=== PATIENT | male | born 1970 | race Caucasian/White ===

== ENCOUNTER 2016-06-15 20:52 | Inpatient (IN) | payer OTHER ==
[~2016-06-15] VITALS: Ht 187.9 cm; Wt 79.1 kg
[~2016-06-15 20:52] MED LIST: ASPIRIN ADULT L81 M1 PO; BUSPIRONE HCL10 MG PO; IBU-200200 MG PO; LIPITOR80 MG PO; MEDROL DOSEPAK4 MG PO; VIBRAMYCIN100 MG PO
[2016-06-15 21:13] VITALS: BP 155/93
[2016-06-15 21:13] LABS: HEMATOCRIT 40.2 % (42.0-52.0); HEMOGLOBIN 14.3 g/dl (14.0-18.0); MEAN CELL VOLUME 90.7 fl (80.0-94.0); MEAN CORPUSCULAR HGB 32.3 pg (27.0-31.0); MEAN CORPUSCULAR HGB CONC 35.6 g/dl (33.0-37.0); PLATELET COUNT AUTOMATED 272 10*3/uL (130-400); RED BLOOD COUNT 4.43 10*6/uL (4.50-5.90); RED CELL DISTRI WIDTH 13.1 % (0-14.5); WHITE BLOOD COUNT 23.4 10*3/uL (4.8-10.8)
[2016-06-15] MEDS ORDERED: LIPITOR40 MG PO (21:26)
[2016-06-15 21:28] LABS: PROTHROMBIN TIME 10.4 SECONDS (9.0-12.4)
[2016-06-15] MEDS ORDERED: METOPROLOL SUCC50 M1 PO (21:28)
[2016-06-15 21:29] LABS: ALBUMIN 4.3 gm/dl (3.1-4.5); ALKALINE PHOSPHATASE 105 U/L (45-117); BILIRUBIN, DIRECT < 0.1 mg/dL (0.0-0.2); BUN 15 mg/dl (7-24); CARBON DIOXIDE 23 mmol/L (21-32); CHLORIDE 105 mmol/L (98-107); EST GLOM FILT AFRICAN AMERICAN > 60 ml/min; GLUCOSE 105 mg/dL (65-99); MAGNESIUM 1.8 mg/dL (1.5-2.1); POTASSIUM 4.4 mmol/L (3.5-5.1); SGOT/AST 33 IU/L (3-35); SGPT/ALT 25 U/L (12-78); SODIUM 139 mmol/L (136-145); TOTAL PROTEIN 7.9 gm/dL (6.4-8.2)
[2016-06-15] MEDS ORDERED: ROBAXIN-750750 MG PO (21:29)
[2016-06-15] MEDS ORDERED: RANEXA1000 M1 PO (21:30)
[2016-06-15] MEDS ORDERED: QUALITY CHOICE10 M3 PO (21:31)
[2016-06-15 21:34] LABS: TROPONIN I < 0.015 ng/ml (<0.045)
[2016-06-15 21:35] VITALS: BP 139/91
[2016-06-15 21:40] LABS: ATYPICAL LYMPHS 1 % (0-0); LYMPHOCYTE # 2.3 10*3/uL (1.3-4.4); MONOCYTE # 1.2 10*3/uL (0.1-1.0); NEUTROPHIL # 19.9 10*3/uL (2.3-7.9); NEUTROPHILS 85 % (47-73); PLATELET SUFFICIENCY NORMAL (NORMAL); TOTAL CELLS COUNTED 100 #CELLS
[2016-06-15 21:57] VITALS: BP 122/88
[2016-06-15 23:13] VITALS: BP 153/75
[2016-06-16] VITALS (7 sets, daily range): BP systolic 106–125; BP diastolic 66–76
[2016-06-16 02:33] LABS: LA>2 REFLEX 2 HR DRAW NOW
[2016-06-16 06:23] LABS: ALBUMIN 3.2 gm/dl (3.1-4.5); BUN 13 mg/dl (7-24); CARBON DIOXIDE 22 mmol/L (21-32); CHLORIDE 108 mmol/L (98-107); CHOLESTEROL 81 mg/dL (<200); EST GLOM FILT AFRICAN AMERICAN > 60 ml/min; POTASSIUM 4.1 mmol/L (3.5-5.1); SGOT/AST 14 IU/L (3-35); SGPT/ALT 16 U/L (12-78); SODIUM 142 mmol/L (136-145); TRIGLYCERIDES 37 mg/dl (<150); VLDL CHOLESTEROL 7 mg/dL (6-40)
[2016-06-16 06:24] LABS: CPK 115 U/L (39-308)
[2016-06-16 06:28] LABS: CKMB 1.3 ng/ml (0.5-3.6)
[2016-06-16 06:29] LABS: BASO # 0.1 10*3/uL (0.0-0.1); BASO % 0.2 % (0.0-1.0); EOS % 0.1 % (1.0-4.0); HEMATOCRIT 35.1 % (42.0-52.0); IG # 0.2 10*3/uL (0.0-0.1); LYMPH % 8.7 % (27.0-41.0); MEAN CORPUSCULAR HGB 32.3 pg (27.0-31.0); MEAN CORPUSCULAR HGB CONC 33.9 g/dl (33.0-37.0); MEAN PLATELET VOLUME 10.8 fl (9.6-12.3); MONO # 1.5 10*3/uL (0.1-1.0); MONO % 6.5 % (3.0-9.0); NEUT # 18.9 10*3/uL (2.3-7.9); NEUT % 83.7 % (47.0-73.0); PLATELET COUNT AUTOMATED 202 10*3/uL (130-400); RED BLOOD COUNT 3.68 10*6/uL (4.50-5.90); RED CELL DISTRI WIDTH 13.2 % (0-14.5); WHITE BLOOD COUNT 22.6 10*3/uL (4.8-10.8)
[2016-06-16 06:30] LABS: ALKALINE PHOSPHATASE 77 U/L (45-117); BILIRUBIN, TOTAL 0.9 mg/dl (0.2-1.0); GLUCOSE 113 mg/dL (65-99); HDL CHOLESTEROL 38 mg/dl (40-60); LDL CHOLESTEROL 36 mg/dL (9-159); MAGNESIUM 2.1 mg/dL (1.5-2.1); THYROID STIM HORMONE (HS) 0.348 uIU/ml (0.358-4.75); TOTAL PROTEIN 6.1 gm/dL (6.4-8.2)
[2016-06-16 06:33] LABS: HEMOGLOBIN 11.9 g/dl (14.0-18.0); MEAN CELL VOLUME 95.4 fl (80.0-94.0)
[2016-06-16 06:35] LABS: TROPONIN I < 0.015 ng/ml (<0.045)
[2016-06-16 07:20] LABS: HEMOGLOBIN A1c 5.8 % (4.8-5.6)
[2016-06-16 08:13] LABS: VITAMIN D, 25-HYDROXY 38.9 ng/mL (30-100)
[2016-06-16 12:15] LABS: CKMB 1.3 ng/ml (0.5-3.6); CPK 132 U/L (39-308)
[2016-06-16 12:17] LABS: TROPONIN I < 0.015 ng/ml (<0.045)
[2016-06-16 18:50] LABS: CPK 132 U/L (39-308)
[2016-06-16 18:53] LABS: TROPONIN I < 0.015 ng/ml (<0.045)
[2016-06-17] VITALS: BP 125/70
[2016-06-17 08:00] VITALS: BP 127/84
[2016-06-17 08:27] LABS: BASO # 0.1 10*3/uL (0.0-0.1); BASO % 0.6 % (0.0-1.0); EOS # 0.3 10*3/uL (0.0-0.4); EOS % 2.6 % (1.0-4.0); HEMATOCRIT 33.9 % (42.0-52.0); HEMOGLOBIN 11.5 g/dl (14.0-18.0); LYMPH # 1.5 10*3/uL (1.3-4.4); MEAN CELL VOLUME 95.5 fl (80.0-94.0); MEAN CORPUSCULAR HGB 32.4 pg (27.0-31.0); MEAN CORPUSCULAR HGB CONC 33.9 g/dl (33.0-37.0); MEAN PLATELET VOLUME 9.8 fl (9.6-12.3); MONO # 0.6 10*3/uL (0.1-1.0); MONO % 6.3 % (3.0-9.0); NEUT # 7.3 10*3/uL (2.3-7.9); NEUT % 75.2 % (47.0-73.0); PLATELET COUNT AUTOMATED 191 10*3/uL (130-400); RED BLOOD COUNT 3.55 10*6/uL (4.50-5.90); RED CELL DISTRI WIDTH 13.4 % (0-14.5); WHITE BLOOD COUNT 9.7 10*3/uL (4.8-10.8)
[2016-06-17 08:38] LABS: BUN 10 mg/dl (7-24); CARBON DIOXIDE 23 mmol/L (21-32); CHLORIDE 114 mmol/L (98-107); EST GLOM FILT AFRICAN AMERICAN > 60 ml/min; GLUCOSE 96 mg/dL (65-99); SODIUM 144 mmol/L (136-145)
[2016-06-17] MEDS ORDERED: PREDNISONE10 MG PO (09:43)
[2016-06-17] MEDS ORDERED: PROVENTIL0.09 MG/A1 INH (09:43)
[2016-06-17] MEDS ORDERED: PANTOPRAZOLE SO40 MG PO (09:43)
[2016-06-17] MEDS ORDERED: LEVAQUIN750 M1 PO (09:43)
[2016-06-17] MEDS ORDERED: DUONEB 3 MG/3 ML3 M1 NEB (09:43)
== END 2016-06-17 11:04 | disposition home or self-care (01) | DRG 871 ==
LOC: ED 20:52 → EDHOLD 23:35 → 5E 06-16 00:03
PROVIDERS: Emergency Medicine; Hospitalist; Internal Medicine
DX: A41.9 Sepsis, unspecified organism (principal); J15.6 Pneumonia due to other Gram-negative bacteria; J44.1 Chronic obstructive pulmonary disease with (acute) exacerbation; J44.0 Chronic obstructive pulmonary disease with (acute) lower respiratory infection; I20.8 Other forms of angina pectoris; E78.5 Hyperlipidemia, unspecified; F12.10 Cannabis abuse, uncomplicated; F17.210 Nicotine dependence, cigarettes, uncomplicated; Z82.49 Family history of ischemic heart disease and other diseases of the circulatory system; R65.20 Severe sepsis without septic shock; K29.70 Gastritis, unspecified, without bleeding; J32.9 Chronic sinusitis, unspecified; K21.9 Gastro-esophageal reflux disease without esophagitis; R07.89 Other chest pain

== ENCOUNTER 2017-07-10 21:13 | Emergency (ER) | payer OTHER ==
[~2017-07-10] VITALS: Ht 187.9 cm; Wt 77.1 kg
[~2017-07-10 21:13] MED LIST changes: +DUONEB 3 MG/3 ML3 M1 NEB; +LEVAQUIN750 M1 PO; +LIPITOR40 MG PO; +METOPROLOL SUCC50 M1 PO; +PANTOPRAZOLE SO40 MG PO; +PREDNISONE10 MG PO; +PROVENTIL0.09 MG/A1 INH; +QUALITY CHOICE10 M3 PO; +RANEXA1000 M1 PO; +ROBAXIN-750750 MG PO
== END 2017-07-10 23:30 | disposition home or self-care (01) ==
LOC: ED 21:13
DX: S90.32XA Contusion of left foot, initial encounter (principal); J32.9 Chronic sinusitis, unspecified; E78.5 Hyperlipidemia, unspecified; F12.10 Cannabis abuse, uncomplicated; F17.200 Nicotine dependence, unspecified, uncomplicated; Z98.890 Other specified postprocedural states; Z79.899 Other long term (current) drug therapy; Z79.82 Long term (current) use of aspirin; W23.0XXA Caught, crushed, jammed, or pinched between moving objects, initial encounter; Y93.89 Activity, other specified; Y92.69 Other specified industrial and construction area as the place of occurrence of the external cause; Y99.9 Unspecified external cause status

== ENCOUNTER 2020-08-17 10:26 | Inpatient (IN) | payer OTHER ==
[~2020-08-17] VITALS: Ht 187.9 cm; Wt 81.6 kg
[2020-08-17 10:34] VITALS: BP 133/84
[2020-08-17 11:11] LABS: HEMATOCRIT 40.2 % (42.0-52.0); MEAN CELL VOLUME 91.8 fl (80.0-94.0); MEAN CORPUSCULAR HGB CONC 34.8 g/dl (33.0-37.0); MEAN PLATELET VOLUME 10.2 fl (9.6-12.3); PLATELET COUNT AUTOMATED 144 10*3/uL (130-400); RED BLOOD COUNT 4.38 10*6/uL (4.50-5.90); RED CELL DISTRI WIDTH 11.9 % (0-14.5); WHITE BLOOD COUNT 13.6 10*3/uL (4.8-10.8)
[2020-08-17 11:27] LABS: ALBUMIN 3.6 gm/dl (3.1-4.5); ALKALINE PHOSPHATASE 73 U/L (45-117); BUN 11 mg/dl (7-24); CHLORIDE 99 mmol/L (98-107); CPK 684 U/L (39-308); POTASSIUM 3.1 mmol/L (3.5-5.1); SGOT/AST 28 IU/L (3-35); SGPT/ALT 24 U/L (12-78); SODIUM 130 mmol/L (136-145); TOTAL PROTEIN 7.6 gm/dL (6.4-8.2)
[2020-08-17 11:29] LABS: TROPONIN I < 0.015 ng/ml (<0.045)
[2020-08-17 11:38] LABS: TOTAL CELLS COUNTED 100 #CELLS
[2020-08-17 11:39] LABS: PLATELET SUFFICIENCY NORMAL (NORMAL)
[2020-08-17 12:57] VITALS: BP 138/86
[2020-08-17 13:25] VITALS: BP 128/78
[2020-08-17 13:47] LABS: ABG BASE EXCESS -3.4 mmol/L (-2.0-2.0); ARTERIAL BLOOD GAS PH 7.473 (7.35-7.45); ARTERIAL BLOOD GAS PO2 66.3 (80-90)
[2020-08-17 15:09] LABS: BILIRUBIN Negative (Negative); BLOOD 2+ (Negative); CLARITY Clear (Clear); COLOR Yellow (Yellow); GLUCOSE Negative (Negative); KETONE 1+ (Negative); LEUKO ESTERASE Negative (Negative); NITRITE Negative (Negative); SPECIFIC GRAVITY 1.025 (1.001-1.030)
[2020-08-17 15:13] VITALS: BP 137/80
[2020-08-17 15:20] LABS: MUCOUS 2+
[2020-08-17 16:50] VITALS: BP 140/81
[2020-08-17 20:00] VITALS: BP 123/81
[2020-08-18] VITALS: BP 123/73
[2020-08-18 06:40] LABS: BASO % 0.1 % (0.0-1.0); HEMATOCRIT 42.9 % (42.0-52.0); LYMPH # 0.7 10*3/uL (1.3-4.4); LYMPH % 7.5 % (27.0-41.0); MEAN CELL VOLUME 94.5 fl (80.0-94.0); MEAN CORPUSCULAR HGB 31.7 pg (27.0-31.0); MEAN CORPUSCULAR HGB CONC 33.6 g/dl (33.0-37.0); MONO # 0.8 10*3/uL (0.1-1.0); MONO % 8.6 % (3.0-9.0); NEUT # 7.8 10*3/uL (2.3-7.9); NEUT % 83.4 % (47.0-73.0); PLATELET COUNT AUTOMATED 127 10*3/uL (130-400); RED BLOOD COUNT 4.54 10*6/uL (4.50-5.90); RED CELL DISTRI WIDTH 12.3 % (0-14.5); WHITE BLOOD COUNT 9.3 10*3/uL (4.8-10.8)
[2020-08-18 07:07] LABS: ALBUMIN 3.1 gm/dl (3.1-4.5); BUN 12 mg/dl (7-24); CHLORIDE 110 mmol/L (98-107); CHOLESTEROL 123 mg/dL (<200); CREATININE 0.75 mg/dL (0.70-1.30); SGOT/AST 31 IU/L (3-35); SGPT/ALT 31 U/L (12-78); SODIUM 139 mmol/L (136-145); TRIGLYCERIDES 94 mg/dl (<150)
[2020-08-18 07:13] LABS: ALKALINE PHOSPHATASE 60 U/L (45-117); LDL CHOLESTEROL 64 mg/dL (9-159); THYROID STIM HORMONE (HS) 0.707 uIU/ml (0.358-4.75); TOTAL PROTEIN 7.2 gm/dL (6.4-8.2)
[2020-08-18 07:46] LABS: POTASSIUM 4.6 mmol/L (3.5-5.1)
[2020-08-18 08:00] VITALS: BP 140/89
[2020-08-18 12:00] VITALS: BP 127/84
[2020-08-18 16:00] VITALS: BP 153/94
[2020-08-18 20:00] VITALS: BP 150/96
[2020-08-19] VITALS: BP 138/93
[2020-08-19 06:30] LABS: ALBUMIN 3.1 gm/dl (3.1-4.5); BUN 15 mg/dl (7-24); CHLORIDE 109 mmol/L (98-107)
[2020-08-19 06:33] LABS: ALKALINE PHOSPHATASE 51 U/L (45-117); CREATININE 0.71 mg/dL (0.70-1.30); SGOT/AST 34 IU/L (3-35); SGPT/ALT 42 U/L (12-78); TOTAL PROTEIN 6.4 gm/dL (6.4-8.2)
[2020-08-19 06:37] LABS: SODIUM 140 mmol/L (136-145)
[2020-08-19 06:40] LABS: POTASSIUM 3.6 mmol/L (3.5-5.1)
[2020-08-19 08:00] VITALS: BP 122/83
[2020-08-19] MEDS ORDERED: ZOFRAN4 MG PO (11:31)
[2020-08-19 12:00] VITALS: BP 115/81
== END 2020-08-19 12:25 | disposition home or self-care (01) | DRG 140 ==
LOC: ED 10:26 → EDHOLD 15:06 → 4E 15:06
PROVIDERS: Emergency Medicine; Student in an Organized Health Care Education/Training Program; ADMIT Internal Medicine; ATTEND Internal Medicine
DX: J44.1 Chronic obstructive pulmonary disease with (acute) exacerbation (principal); R65.10 Systemic inflammatory response syndrome (SIRS) of non-infectious origin without acute organ dysfunction; R79.89 Other specified abnormal findings of blood chemistry; E87.3 Alkalosis; Z20.822 Contact with and (suspected) exposure to COVID-19; F17.210 Nicotine dependence, cigarettes, uncomplicated; R11.2 Nausea with vomiting, unspecified; R07.89 Other chest pain; R19.7 Diarrhea, unspecified; E78.5 Hyperlipidemia, unspecified; Z87.01 Personal history of pneumonia (recurrent); Z83.3 Family history of diabetes mellitus; Z82.5 Family history of asthma and other chronic lower respiratory diseases; Z82.49 Family history of ischemic heart disease and other diseases of the circulatory system; Z80.8 Family history of malignant neoplasm of other organs or systems; Z79.899 Other long term (current) drug therapy; Z79.82 Long term (current) use of aspirin

== ENCOUNTER 2023-07-08 09:59 | Emergency (ER) | payer OTHER ==
[~2023-07-08] VITALS: Ht 187.9 cm; Wt 83.9 kg
[~2023-07-08 09:59] MED LIST changes: +ZOFRAN4 MG PO
[2023-07-08] MEDS ORDERED: Tdap Vaccine 0.5 ML SYR (Adult Vaccine) IM ONE (10:25)
[2023-07-08] MEDS ORDERED: CEPHALEXIN500 M1 PO (11:15)
== END 2023-07-08 11:19 | disposition home or self-care (01) ==
LOC: ED 09:59
DX: S61.211A Laceration without foreign body of left index finger without damage to nail, initial encounter (principal); S61.213A Laceration without foreign body of left middle finger without damage to nail, initial encounter; J44.9 Chronic obstructive pulmonary disease, unspecified; E78.00 Pure hypercholesterolemia, unspecified; Z95.5 Presence of coronary angioplasty implant and graft; Z98.890 Other specified postprocedural states; F12.10 Cannabis abuse, uncomplicated; F17.200 Nicotine dependence, unspecified, uncomplicated; W31.9XXA Contact with unspecified machinery, initial encounter; Y93.89 Activity, other specified; Y92.89 Other specified places as the place of occurrence of the external cause; Y99.8 Other external cause status